=== PATIENT | male | born 1950 | race Caucasian/White ===

== ENCOUNTER 2016-06-25 06:14 | Inpatient (IN) ==
--- NOTE | 2016-06-25 06:43 | Anesthesia Evaluation PreOp ---
Date of Encounter: 06/25/16 Time of Encounter: 06:40 - Past History Planned Operation: kacey fundoplication Cardiac History: HTN Pulmonary History: Denies Any Significant HX BELT FIXER History: CVA (Has no residual deficits) Other Medical History: GERD Anesthesia History: No Prior Anesthetic Complications, Past Anesthesia Alcohol Use: none Drug use: none Medications and Allergies Aspirin 81 mg PO DAILY 04/15/16 [History] Clopidogrel [Plavix] 75 mg PO DAILY 04/15/16 [History] Lisinopril [Zestril] 5 mg PO DAILY 04/15/16 [History] Pantoprazole Sodium [Protonix] 40 mg PO DAILY 04/15/16 [History] Simvastatin [Zocor] 40 mg PO HS 04/15/16 [History] Allergies No Known Allergies Allergy (Verified 04/15/16 08:31) - Meds/Allergy Pre-op Review Medications Reviewed: Yes (blood thinners held) Allergies Reviewed: Yes Beta Blockers on Current Med List: No Anesthesia Results - Labs Laboratory Tests 06/19/16 06/19/16 13:19 13:19 WBC 11.6 H Hgb 13.5 Hct 40.8 Plt Count 231 Sodium 138 Potassium 4.5 Chloride 104 Carbon Dioxide 24 BUN 12 Creatinine 0.84 - Imaging EKG: report reviewed, image reviewed Anesthesia Exam Selected Entries 06/25/16 06:37 Temperature 98.2 F Pulse Rate 92 Respiratory Rate 18 Blood Pressure 125/78 O2 Sat by Pulse Oximetry 99 Weight: 165 lbs NPO (# of Hours): over 8 hours - HEENT Pupil (Motor): Pupils equal Mallampati: I Teeth: Edentulous Oral Opening: Greater than 3 - BELT FIXER BELT FIXER Motor: Normal RUE, Normal LUE, Normal RLE, Normal LLE, Normal Face - Cardiac Rhythm: Regular - Pulmonary Breath Sounds: bilateral Clear Anesthesia Assess/Plan ASA Score: 2 Modified Jeannine Scale for Level of Consciousness: Cooperative, oriented, and tranquil Anesthetic Plan: General Monitoring Plan: Standard Monitors Recovery Plan: PACU (Discussed GA, risks and potential complications. Agreed to proceed.)
[2016-06-25] MEDS ORDERED: CeFAZolin Pre 2,000 MG/100 ML 2,000 MG/100 ML BAG IVPB ONE (06:50)
[2016-06-25] MEDS ORDERED: Lidocaine 1% 20 ML MDV ID ONE (06:50)
[2016-06-25] MEDS ORDERED: Ringers Solution, Lactated 1,000 ML IVC SCH (07:00)
--- NOTE | 2016-06-25 07:04 | History & Physical Report ---
Date of Encounter: 06/25/16 Time of Encounter: 07:00 24 Hour HP Update - Instructions Instructions: If the History and Physical is less than 30 days old and was completed prior to A.M. admission and or procedure and has NOT been updated on calendar day of procedure please complete this update prior to performing procedure. - Update Patient reports changes in Medical Condition: No Changes in assessment/condition: No Changes in Medication: No Preop tests/diagnostics Reviewed: Yes Surgery Remains Indicated: Yes Consent for Planned Operative Procedure(s) Verified: Yes - Pre-Operative Checklist Preoperative Checklist Indicated: Yes Prophylactic Antibiotic Ordered: Yes Home Medications Include Beta Jose: No Is VTE Prophylaxis Indicated?: Yes
[2016-06-25] MEDS ORDERED: *HR* Midazolam HCl 2 MG/2 ML VIAL ONE (07:07)
[2016-06-25] MEDS ORDERED: *HR* Rocuronium Bromide 50 MG/5 ML VIAL ONE (07:07)
[2016-06-25] MEDS ORDERED: Lidocaine -MPF 4% 5 ML AMPUL ONE (07:07)
[2016-06-25] MEDS ORDERED: Neostigmine Methylsulfate 3 MG/3 ML SYRINGE ONE (07:07)
[2016-06-25] MEDS ORDERED: Ondansetron 4 MG/2 ML VIAL ONE (07:07)
[2016-06-25] MEDS ORDERED: *HR* Propofol 200 MG/20 ML VIAL IVP ONE (07:07)
[2016-06-25] MEDS ORDERED: *HR* Succinylcholine 200 MG/10 ML VIAL IVP ONE (07:07)
[2016-06-25] MEDS ORDERED: *HR* FentaNYL (PF) 100 MCG/2 ML VIAL ONE (07:07)
[2016-06-25] MEDS ORDERED: Dexamethasone 4 MG/ML VIAL ONE ×2 (07:07→09:11)
[2016-06-25] MEDS ORDERED: Lidocaine -MPF 2% 2 ML VIAL ONE (07:08)
[2016-06-25] MEDS ORDERED: CefOXitin 1,000 MG VIAL ONE (07:17)
--- NOTE | 2016-06-25 08:53 | Event Note ---
Date of Encounter: 06/25/16 Time of Encounter: 08:45 The patient was taken to the operating room at about 7:50 a.m. The patient was identified and preparations were made for general anesthetic. After intubation on the first breath the patient had a significant reflux and aspiration event. There was an air leak with the balloon on the endotracheal tube and this resulted in high-volume aspiration into the trachea. This was immediately recognized. The endotracheal tube was suctioned of particulate matter. Additional anesthesia staff responded and work with ventilation and apparent bronchospasm. The patient had persistent hypoxia with oxygen saturation in the high 70s and low 80s with 100% FiO2 and peak airway pressures in the low 30s. The patient was treated with steroid. The patient had already received preoperative antibiotic. An oral gastric tube placed earlier in the event aspirated almost 2 L of gastric contents obviously from the gastric volvulus which brought the patient to the operating room. After the patient was stabilized with oxygen levels in the low 90s. The endotracheal tube was changed over to a large #9 tube to allow for bronchoscopy and irrigation if needed. The patient is transferred to the intensive care unit for further therapy.
[2016-06-25] MEDS ORDERED: 0.9 % Sodium Chloride 1,000 ML IVC SCH (09:21)
[2016-06-25] MEDS ORDERED: Naloxone 0.4 MG/ML INJ IVP PRN (09:31)
[2016-06-25 10:51] LABS: ABG Base Excess -4.5 mEq/L (-2.0 to 3.0); ABG HCO3 27.3 mEQ/L (21-27); ABG Oxygen Saturation 98 % (95-98); ABG PO2 131 mmHg (85-104); ABG TCO2 29.9 mEq/L (20-26)
[2016-06-25 10:52] LABS: ABG PCO2 86 mmHg (35-45); Blood Gas FiO2 100 %; Blood Gas PEEP 10 cm H2O; Blood Gas Respiration Rate 12; Blood Gas VT 360 cc
[2016-06-25 10:53] LABS: ABG PH 7.11 pH Units (7.32-7.45)
[2016-06-25] MEDS ORDERED: Ipratropium/Albuterol Neb 3 ML IH PRN (11:37)
[2016-06-25] MEDS ORDERED: Dexmedetomidine HCl 400 MCG/100 ML MLS IVC SCH (11:45)
--- NOTE | 2016-06-25 12:00 | Pulmonology Consult Note ---
Date of Encounter: 06/25/16 Time of Encounter: 11:44 Assessment and Plan (1) Aspiration into airway Current Visit: Yes Status: Acute Witnessed aspiration this am 0700(06/25/2016) upon induction of anesthesia as patient was to going to undergo Hang fundoplication for a paraesophageal hernia. Upon admission to the ICU patient was intubated and sedated, which we will continue. He has an NG tube in place as well as a tatum catheter. Shortly after admission the patients oxygenation declined with O2 sats dropped to 70%. A CXR revealed left lower lobe lung volume loss 2/2 atelectasis with associated cardiac migration to the left side. This was likely causing his poor oxygenation from shunt physiology. Bedside bronchospocy was urgently performed and copious amounts of secretions and debris was suctioned. Oxygenation improved with O2 saturations in the 90 s. BAL was performed and sent for gram stain and culture. Reevaluation: 06/25/16, 1600: CVC was placed without complication d/t hypotension. Patient became normotensive with 1.5L NS bolus. Pt. oxygenation improved significantly. Ventilator support was discontinued and he successfully had a CPAP trial. He was then extubated without complication with oxygen saturations >90%. Will wait for gram stain results. If positive will start antibiotics. Serial chest radiographic studies Goal MAP>60, currently 85 Duonebs Qualifiers: Encounter type: initial encounter Qualified Code(s): T17.908A - Unspecified foreign body in respiratory tract, part unspecified causing other injury, initial encounter (2) Respiratory acidosis Current Visit: Yes Status: Acute ABG s/p aspiration and subsequent bronchoscopy: 7.11/86/27.3 Ventilator minute rate increased to blow off CO2 will recheck ABG in 1.5 hours. Revaluation: Repeat ABG 7.33/46/25.3. extubated. Will reevaluate in am (3) HTN (hypertension) Current Visit: No Status: Chronic Hypertensive 220/120 on admission to ICU will hold home meds Qualifiers: Hypertension type: unspecified secondary hypertension Qualified Code(s): I15.9 - Secondary hypertension, unspecified; I15 - Secondary hypertension (4) Hx TIA/stroke w/o resid Current Visit: No Status: Chronic On Plavix/Asa at home. Will hold for now. Heparin subq 5000 TID (5) DVT prophylaxis Current Visit: Yes Status: Acute Heparin subq 5000 TID History of Present Illness Consult date: 06/25/16 Requesting physician: Jed Calixto Reason for consult: other (Aspiration in OR) Chief complaint: Aspiration History of present illness: Mr. Richter is a 65 M who was scheduled to have a Hang fundoplication this morning to repair his paraesophageal hernia. He has a hx significant for HTN, TIA (2011), PFO, HLD, Colon resection, 80+pack year smoking history, 40 year alcohol abuse history. This morning immediately following anesthesia induction the patient vomited and aspirated copious amounts. He had persistent hypoxia with O2 saturations in the 70-80's with 100% FiO2. He was given a steroid. He had already received preoperative antibiotic. He was immediately transferred to the ICU and the surgery was aborted. Past Med Surg Social Fam HX - Past Medical History Medical history: CVA, GERD Psychiatric history: no psych history - Past Surgical History Surgical History: orthopedic, other, other - Social History Smoking Status: Never smoker Smokeless Tobacco Status: No Alcohol use: none Drug use: none Medications and Allergies Aspirin 81 mg PO DAILY 04/15/16 [History] Clopidogrel [Plavix] 75 mg PO DAILY 04/15/16 [History] Lisinopril [Zestril] 5 mg PO DAILY 04/15/16 [History] Pantoprazole Sodium [Protonix] 40 mg PO BID 04/15/16 [History] Simvastatin [Zocor] 40 mg PO HS 04/15/16 [History] Cyanocobalamin (Vitamin B-12) [Vitamin B-12] 500 mcg PO DAILY 06/25/16 [History] Multivitamin [One Daily Essential] 1 each PO DAILY 06/25/16 [History] Allergies No Known Allergies Allergy (Verified 06/25/16 07:23) ROS unobtainable: due to endotracheal tube All Systems: A 10-system review of systems was performed and is negative for pertinent findings except as documented above in the HPI. Physical Examination General appearance: other (intubated and sedated) Eyes: nonicteric ENT: oropharynx dry Neck: supple Effort: very labored, other Auscultation: bilateral: rhonchi Cardiovascular: regular rate and rhythm Gastrointestinal: hypoactive bowel sounds Extremities: edema unable to assess due to mental status Results - Laboratory Findings CBC and BMP: 06/25/16 12:09 06/25/16 12:09 ABG ABG pH 7.11 pH Units (7.32-7.45) L* 06/25/16 10:35 ABG pCO2 86 mmHg (35-45) H* 06/25/16 10:35 ABG pO2 131 mmHg (85-104) H 06/25/16 10:35 ABG O2 Saturation 98 % (95-98) 06/25/16 10:35 Abnormal lab findings: Abnormal lab results ABG pH 7.11 pH Units (7.32-7.45) L* 06/25/16 10:35 ABG pCO2 86 mmHg (35-45) H* 06/25/16 10:35 ABG pO2 131 mmHg (85-104) H 06/25/16 10:35 ABG HCO3 27.3 mEQ/L (21-27) H 06/25/16 10:35 ABG Total CO2 29.9 mEq/L (20-26) H 06/25/16 10:35 ABG Base Excess -4.5 mEq/L (-2.0 to 3.0) L 06/25/16 10:35 - Clinical Findings Intake & Output: Intake & Output 06/24/16 06/25/16 06/25/16 23:59 07:59 15:59 Intake Total 800 / 800 Balance 800 / 800 Weight 79.379 kg Consult Discharge Plan - Plan Referrals: Royal Ceballos MD [Primary Care Provider] -
[2016-06-25 12:17] LABS: Basophils % 0.1 %; Eosinophils % 0.1 %; Hematocrit 43.7 % (37.5-50.1); Hemoglobin 14.1 g/dL (12.9-16.9); Immature Granulocytes % 0.3 % (0-4); Lymphocytes # 0.3 K/mcL (0.6-4.6); Lymphocytes % 2.2 %; Mean Corpuscular HGB Conc 32.3 g/dL (31.6-35.5); Mean Corpuscular Hemoglobin 28.8 pg (28.0-33.3); Mean Corpuscular Volume 89.4 fL (83.0-100.0); Mean Platelet Volume 9.3 fL (9.4-12.4); Monocytes # 0.4 K/mcL (0.0-1.3); Monocytes % 2.4 %; Neutrophils # 14.2 K/mcL (1.6-8.9); Platelet Count 225 K/mcL (140-400); Red Blood Count 4.89 M/mcL (4.19-5.50); Segmented Neutrophils % 94.9 %
--- NOTE | 2016-06-25 12:18 | Event Note ---
Date of Encounter: 06/25/16 Time of Encounter: 12:00 Patient examined, chart and all data reviewed as well as recent imaging studies. I reviewed the case in detail with Dr. Calixto. Apparently, patient experienced high-volume aspiration during induction anesthesia (the patient was to undergo abdominal surgery for intrathoracic hiatal hernia). Following aspiration event, the patient was notably profoundly hypoxemic and required high level ventilatory support. Given the sequence of events and ventilatory requirements, the patient was transferred to the intensive care unit for further management. I reviewed the medical history detail and of note, the patient is in fact a current smoker of at least [id number] (per daughter, not listed in chart) and is an alcoholic (sober for approximately 4 years). Medical histories include hypertension and hypercholesterolemia, prior stroke carotid arterial disease and atrial septal defect (reportedly with right to left shunt). Examination revealed a male sedated and orally intubated with acceptable hemodynamics and oxygen saturation via pulse oximetry approximating 93%, FiO2 of 100% 10 of PEEP, orally intubated with a #9 endotracheal tube. Suctioning endotracheal tube did not reveal significant secretion. Auscultation of the chest was notable for reduced breath sounds at the left base relative to the other lung zones. Rhonchi were present as well. Cardiac exam notable for regular rate systolic murmur was not appreciated P2 component was normal. Abdominal exam was soft and scaphoid configuration, bowel sounds were present. Extremities were warm to touch, pulses intact. Sedation precluded a detailed neurologic exam, spontaneous extremity movement, cough and occular exam all intact. Focused Ultrasound evaluation revealed preserved LV function normal size of right structures normal IVC size with respiratory variation, lung sliding throughout all right lung zones, reduced lung movement within the left hemithorax however preserved lung pulse and air bronchogram sign suggestive of atelectasis and/or infiltrate (left base). A subsequent desaturation event was noted by nursing staff and in light of the findings noted from focused chest ultrasound, bronchoscopy was performed at the bedside. Significant mucoid secretions were noted obstructing the left main stem bronchus and following removal of the secretions from the left mainstem bronchus, the left upper lobe bronchi appear relatively normal. Retained secretions and foreign matter noted within all the bronchopulmonary segments within the left lower lobe in conjunction with mucosal edema and airway inflammatory changes throughout all bronchopulmonary segments within the left lower lobe. Specimens were obtained for microbiological analysis. The patient will be maintained on full ventilatory support given acute respiratory failure with hypoxia. Aside from atelectasis due to gastric aspiration and perhaps undiagnosed COPD as etiologies of acute respiratory failure, the patient l develop lung injury/ARDS. Mechanical ventilation will be provided with lung protective strategy. Inhaled bronchodilators will be provided to enhance bronchopulmonary hygiene. The patient will receive DVT and ulcer prophylaxis. Based the results of Gram stain from the respiratory specimen rendered at the time of bronchoscopy, antibiotics may be initiated ( Unasyn).
[2016-06-25 12:22] LABS: INR 1.2; Prothrombin Time 12.9 Seconds (9.4-12.1)
--- NOTE | 2016-06-25 12:22 | Procedure Note ---
Date of procedure: 06/25/16 Pre-op diagnosis: atelectasis left lower lobe Post-op diagnosis: same Procedure: A disposable bronchoscope was utilized for this procedure. This procedure was performed emergently. Through the pre-existing oral endotracheal tube, bronchoscope passed without difficulty. Inspection of the right main stem bronchus and all bronchopulmonary segments within the right chest entirely unremarkable. The left mainstem bronchus was obstructed by mucus. Following removal of secretions from the left mainstem bronchus, the left upper lobe bronchopulmonary segments were unremarkable. Thick inspissated secretions as well as foreign material noted within all bronchopulmonary segments the left lower lobe. Furthermore, severe airway inflammatory changes were also noted within all bronchopulmonary segments the left lower lobe. Specimen was obtained for microbiological analysis. Vigorous washing technique was utilized to remove all foreign material and secretions from the left lower lobe. The patient tolerated the procedure well no untoward events were noted. Anesthesia: none Surgeon: Fabian Hines Estimated blood loss (cc): 0 IV fluids (cc): 0 Urine output (cc): 20 Pathology: none sent Condition: critical Disposition: ICU (Emergent bronchoscopy performed given significant desaturation and clinical findings suggestive of left lower lobe atelectasis. Specimen obtained for microbiological analysis. He procedure was tolerated well and of note, oxygen saturation values robin promptly with removal of left lower lobe secretions.)
[2016-06-25 12:31] LABS: Alanine Aminotransferase 7 Units/L (0-55); Albumin 3.3 g/dL (3.5-5.0); Alkaline Phosphatase 73 Units/L (38-126); Aspartate Amino Transferase 14 Units/L (5-34); BUN/Creatinine Ratio 14 (6-26); Bilirubin,Total 0.3 mg/dL (0.2-1.2); Blood Urea Nitrogen 12 mg/dL (8-26); Calcium 9.1 mg/dL (8.6-10.8); Carbon Dioxide 26 mEq/L (19-29); Chloride 104 mEq/L (98-109); Globulin 3.2 g/dL (2.4-3.5); Glucose 177 mg/dL (70-99); Osmolality,Calculated 290 (280-300); Potassium 4.3 mEq/L (3.5-4.5); Sodium 138 mEq/L (136-145); Total Protein 6.5 g/dL (6.0-8.3); eGFR For African Americans > 60 (> 60); eGFR For Non-African Americans > 60 (> 60)
[2016-06-25] MEDS ORDERED: 0.9 % Sodium Chloride 500 ML IVC ONE (12:58)
[2016-06-25] MEDS ORDERED: 0.9 % Sodium Chloride 1,000 ML ONE ×2 (13:00→13:40)
[2016-06-25] MEDS ORDERED: D5% in Water 1,000 ML IV PRN (13:27)
[2016-06-25] MEDS ORDERED: Dextrose Gel 15 GM PO PRN ×2 (13:27)
[2016-06-25] MEDS ORDERED: *HR* Dextrose 50 % in Water (Syg) 50 ML SYRINGE IVP PRN (13:27)
[2016-06-25 13:29] LABS: ABG Base Excess -1.9 mEq/L (-2.0 to 3.0); ABG HCO3 24.3 mEQ/L (21-27); ABG Oxygen Saturation 100 % (95-98); ABG PCO2 46 mmHg (35-45); ABG PH 7.33 pH Units (7.32-7.45); ABG PO2 248 mmHg (85-104); ABG TCO2 25.7 mEq/L (20-26)
[2016-06-25 13:30] LABS: Blood Gas FiO2 80 %
[2016-06-25] MEDS ORDERED: 0.9 % Sodium Chloride 500 ML ONE (13:54)
[2016-06-25] MEDS ORDERED: Norepinephrine 4 MG in D5% in Water 250 ML IVC SCH (14:00)
[2016-06-25] MEDS: Ipratropium/Albuterol Neb 3 ML IH SCH ×2 (15:14→22:21)
--- NOTE | 2016-06-25 15:21 | Procedure Note ---
Date of procedure: 06/25/16 Pre-op diagnosis: Respiratory failure due to aspiration Post-op diagnosis: same Procedure: Central Venous Catheter Placement Date: 06/25/16 Time: 1400 Indication: Hemodynamic monitoring/Intravenous access Resident: Brian Smith Attending: Dr. Hines A time-out was completed verifying correct patient, procedure, site, positioning , and special equipment if applicable. The patient was placed in a dependent position appropriate for central line placement based on the vein to be cannulated. The patients right neck was prepped and draped in sterile fashion. 1 % Lidocaine was used to anesthetize the surrounding skin area. A triple lumen catheter was introduced into the the internal jugular using the Seldinger technique and under ultrasound guidance. A 16 cm 7 maori catheter was threaded smoothly over the guide wire and appropriate blood return was obtained. Each lumen of the catheter was evacuated of air and flushed with sterile saline. The catheter was then sutured in place to the skin and a sterile dressing applied. Perfusion to the extremity distal to the point of catheter insertion was checked and found to be adequate. Procedure was performed by Dr. Oscar Burden, assisted by Dr. Tim España, and was overseen by attending Dr. Hines. Estimated Blood Loss: 10ml The patient tolerated the procedure well and there were no complications. Anesthesia: IV sedation Surgeon: Oscar Burden Cafeteria Table Attendant: Tim España Estimated blood loss (cc): 10 IV fluids (cc): 0 Urine output (cc): 0 Pathology: none sent Condition: stable Disposition: ICU
--- NOTE | 2016-06-25 16:22 | Event Note ---
Date of Encounter: 06/25/16 Time of Encounter: 14:00 Central line placement. Time of procedure was at 1400 I called and spoke with the patient's daughter Trina Richter, patient's daughter who is currently in the state of [place]. I discussed the reasoning for placing a central line, risks and benefits. She provided verbal consent to place a central line on her father Real Richter. She also requested that any decisions that need to be made in her absence or until the patient's sister arrives would be made by a family friend/in store marketing representative Madhavi Coreas.
[2016-06-25] MEDS: *HR* Heparin 5,000 UNIT/ML VIAL SQ SCH (16:45)
[2016-06-25] MEDS: Insulin LISPRO 300 UNITS/3 ML VIAL SQ SCH (18:22)
[2016-06-26] MEDS: *HR* Heparin 5,000 UNIT/ML VIAL SQ SCH ×4 (00:50→23:05)
[2016-06-26] MEDS: Insulin LISPRO 300 UNITS/3 ML VIAL SQ SCH ×2 (00:51→05:19)
[2016-06-26] MEDS: Ipratropium/Albuterol Neb 3 ML IH SCH ×4 (04:43→23:09)
[2016-06-26 04:50] LABS: Basophils % 0.1 %; Hematocrit 33.3 % (37.5-50.1); Immature Granulocytes % 0.3 % (0-4); Lymphocytes % 6.6 %; Mean Corpuscular HGB Conc 33.3 g/dL (31.6-35.5); Mean Corpuscular Hemoglobin 29.1 pg (28.0-33.3); Mean Corpuscular Volume 87.4 fL (83.0-100.0); Monocytes % 6.5 %; Neutrophils # 13.4 K/mcL (1.6-8.9); Platelet Count 178 K/mcL (140-400); Red Blood Count 3.81 M/mcL (4.19-5.50); Red Cell Distribution Width 12.1 % (11.5-14.5); Segmented Neutrophils % 86.5 %
[2016-06-26 04:54] LABS: INR 1.3; Prothrombin Time 14.6 Seconds (9.4-12.1)
[2016-06-26 04:59] LABS: Hemoglobin 11.1 g/dL (12.9-16.9)
[2016-06-26 05:10] LABS: Alanine Aminotransferase 6 Units/L (0-55); Albumin 2.7 g/dL (3.5-5.0); Alkaline Phosphatase 55 Units/L (38-126); Aspartate Amino Transferase 14 Units/L (5-34); BUN/Creatinine Ratio 17 (6-26); Bilirubin,Total 0.6 mg/dL (0.2-1.2); Blood Urea Nitrogen 12 mg/dL (8-26); Calcium 8.8 mg/dL (8.6-10.8); Carbon Dioxide 23 mEq/L (19-29); Chloride 106 mEq/L (98-109); Globulin 2.8 g/dL (2.4-3.5); Glucose 107 mg/dL (70-99); Osmolality,Calculated 284 (280-300); Potassium 3.9 mEq/L (3.5-4.5); Sodium 137 mEq/L (136-145); Total Protein 5.5 g/dL (6.0-8.3); eGFR For African Americans > 60 (> 60); eGFR For Non-African Americans > 60 (> 60)
--- NOTE | 2016-06-26 07:44 | Pulmonology Progress Note ---
Date of Encounter: 06/26/16 Time of Encounter: 07:41 Assessment and Plan (1) Aspiration into airway Current Visit: Yes Status: Acute Chest x-ray this morning shows significant improvement of aeration of lungs compared to yesterday 06/25/2016. Patient is oxygenating well saturations in the mid to upper 90s on 2 L nasal cannula. He appears to have no residual effects from his aspiration event yesterday. Bronchial washings were sent for Gram stain and culture. Preliminary results Gram stain showed few white blood cells, few gram-negative rods, and bacteria. We will hold off on antibiotics at this time and await for culture results. Patient's vital signs are stable, and transfers will be placed to move him out of the ICU onto the floor. Qualifiers: Encounter type: subsequent encounter Qualified Code(s): T17.908D - Unspecified foreign body in respiratory tract, part unspecified causing other injury, subsequent encounter (2) Hypotension Current Visit: Yes Status: Resolved On 06/25/2016 patient became hypotensive with the low blood pressure of 50/40. This was most likely secondary to the aspiration, sedation with Precedex and propofol. Central venous catheter was placed, 1.5 L fluid bolus was given, and sedation was discontinued. After which he became normotensive yesterday as and has remained normotensive since. Qualifiers: Hypotension type: unspecified hypotension type Qualified Code(s): I95.9 - Hypotension, unspecified (3) Respiratory acidosis Current Visit: Yes Status: Resolved Respiratory acidosis has resulted this time. Most recent ABG ABG 7.33/46/25.3 Will continue to monitor (4) HTN (hypertension) Current Visit: No Status: Chronic Hypertensive 220/120 on admission to ICU. Blood pressure 115/59 this morning. will hold home meds Qualifiers: Hypertension type: unspecified secondary hypertension Qualified Code(s): I15.9 - Secondary hypertension, unspecified; I15 - Secondary hypertension (5) Hx TIA/stroke w/o resid Current Visit: No Status: Chronic On Plavix/Asa at home. Will hold for now. Heparin subq 5000 TID (6) DVT prophylaxis Current Visit: Yes Status: Acute Heparin subq 5000 TID Subjective Principal diagnosis: Acute respiratory failure from aspiration Interval history: Patient seen and examined. Sitting up comfortably in bed this morning no acute distress and patient is stable this morning, he is conversational. Denies any chest pain, shortness of breath, abdominal pain, nausea. He is vital signs are stable this morning. Blood pressure has remained normotensive since central line placement and fluid bolus 06/25/2016. Transformers replace today to move patient out of the ICU onto the floor. Objective PUL Vital signs: Last Vital Signs Temp 98.9 F 06/26/16 04:20 Pulse 95 06/26/16 06:00 Resp 18 06/26/16 06:00 BP 99/54 06/26/16 06:00 Pulse Ox 92 L 06/26/16 06:00 General appearance: no acute distress Eyes: nonicteric ENT: oropharynx moist Neck: supple Effort: normal Auscultation: left: rales, right: clear Cardiovascular: regular rate and rhythm Gastrointestinal: normoactive bowel sounds Integumentary: normal Extremities: no cyanosis, no edema, no clubbing, pink and warm, pulses normal Musculoskeletal: no deformities normal mental status, non-focal exam mood appropriate, affect normal Results - Laboratory Findings CBC and BMP: 06/26/16 04:30 06/26/16 04:30 ABG ABG pH 7.33 pH Units (7.32-7.45) D 06/25/16 13:20 ABG pCO2 46 mmHg (35-45) H D 06/25/16 13:20 ABG pO2 248 mmHg (85-104) H 06/25/16 13:20 ABG O2 Saturation 100 % (95-98) H 06/25/16 13:20 PT/INR, D-dimer PT 14.6 Seconds (9.4-12.1) H 06/26/16 04:30 Abnormal lab findings: Abnormal lab results WBC 15.5 K/mcL (4.3-11.1) H 06/26/16 04:30 RBC 3.81 M/mcL (4.19-5.50) L 06/26/16 04:30 Hgb 11.1 g/dL (12.9-16.9) L D 06/26/16 04:30 Hct 33.3 % (37.5-50.1) L 06/26/16 04:30 Neutrophils # 13.4 K/mcL (1.6-8.9) H 06/26/16 04:30 PT 14.6 Seconds (9.4-12.1) H 06/26/16 04:30 ABG pCO2 46 mmHg (35-45) H D 06/25/16 13:20 ABG pO2 248 mmHg (85-104) H 06/25/16 13:20 ABG O2 Saturation 100 % (95-98) H 06/25/16 13:20 Creatinine 0.69 mg/dL (0.72-1.25) L 06/26/16 04:30 Glucose 107 mg/dL (70-99) H 06/26/16 04:30 POC Glucose 128 (58-89) H 06/26/16 00:01 Serum Total Protein 5.5 g/dL (6.0-8.3) L 06/26/16 04:30 Albumin 2.7 g/dL (3.5-5.0) L 06/26/16 04:30 Albumin/Globulin Ratio 1.0 (1.1-2.2) L 06/26/16 04:30 - Microbiology Findings Microbiology Findings: Microbiology, Last 48 Hours 06/25/16 09:50 Gram Stain - Preliminary Bronchial Washings - Clinical Findings Intake & Output: Intake & Output 06/25/16 06/25/16 06/26/16 15:59 23:59 07:59 Intake Total 800 / 800 0 / 0 Output Total 350 / 350 250 / 250 550 / 550 Balance 450 / 450 -250 / -250 -550 / -550 Weight 76.6 kg - VTE Documentation of Mechanical Device: Intermittent pneumatic compression device Consult Discharge Plan - Plan Referrals: Royal Ceballos MD [Primary Care Provider] -
--- NOTE | 2016-06-26 09:24 | General Surgery Progress Note ---
Date of Encounter: 06/26/16 Time of Encounter: 07:00 - Assessment and Plan (1) Aspiration into airway Current Visit: Yes Status: Acute The aspiration and the airway resulted in aspiration pneumonitis. The patient is being treated with steroid and antibiotic. I recommended waiting at least 2 weeks to initiate a general anesthetic. The patient understands this. We will continue aggressive treatment of his aspiration pneumonitis. Qualifiers: Encounter type: subsequent encounter Qualified Code(s): T17.908D - Unspecified foreign body in respiratory tract, part unspecified causing other injury, subsequent encounter Subjective Narrative: The patient is awake and alert. I was able to discuss with him the clinical events that occurred yesterday during intubation in the operating room and then his subsequent care in the intensive care unit. Yesterday his left lung and left lower lobe had considerable opacity. Today on chest x-ray the lung is much more clear. I personally reviewed all of his chest x-rays from yesterday and today his white blood cell count is 15,500 today slightly elevated. On physical examination he continues to have some wheezing. His oxygen saturation on 3 L nasal cannula is 91%. The patient is awake and alert and hungry. I have approved him for clear liquids. We will long discussion today about when to proceed with surgery. I understand that he is at aspiration risk because of his intrathoracic stomach. He is at risk for volvulus. In currently stomach is obstructing. Despite this, I think that we should wait 2 weeks to allow his lungs to recover before giving him a general anesthetic. I have recommended that he be placed on a clear liquid diet and advanced to full liquids. We will reschedule his surgery after he stabilizes. At this point we need to continue aggressive therapy for aspiration pneumonia. Objective Vital Signs - Last 8 Hours Temp Pulse Resp BP Pulse Ox 06/26/16 08:00 81 25 115/59 93 L 06/26/16 07:52 95 06/26/16 07:00 98.6 F 95 16 116/58 93 L 06/26/16 06:00 95 18 99/54 92 L 06/26/16 05:00 86 23 93/44 92 L 06/26/16 04:44 23 106/58 95 06/26/16 04:20 98.9 F 72 23 106/58 93 L 06/26/16 03:02 75 25 101/58 91 L 06/26/16 02:00 80 24 96/55 91 L Intake and Output 06/25/16 06/26/16 06/26/16 23:59 07:59 15:59 Intake Total 0 / 0 Output Total 250 / 250 800 / 800 Balance -250 / -250 -800 / -800 Intake: Oral 0 / 0 Output: Catheter 250 / 250 800 / 800 Other: Weight 76.6 kg Blood Glucose* 115 128 Patient Weight 06/26/16 23:59 Weight 76.6 kg - General physical appearance well developed, well nourished, no pain - Neck Neck exam: no masses, trachea midline, no lymphadectomy - Respiratory normal respiratory effort wheezing: bilateral - Cardiovascular Cardiovascular exam: Present: RRR, no murmurs/rubs/gallops - Abdomen Abdomen: Present: bowel sounds present, soft, non tender - Neurologic normal coordination, normal sensation - Psychiatric oriented to time, oriented to person, oriented to place, speech is normal, memory intact - Labs 06/26/16 04:30 06/26/16 04:30 Diabetes panel 06/25/16 06/26/16 Range/Units 12:09 04:30 Sodium 138 137 (136-145) mEq/L Potassium 4.3 3.9 (3.5-4.5) mEq/L Chloride 104 106 (98-109) mEq/L Carbon Dioxide 26 23 (19-29) mEq/L BUN 12 12 (8-26) mg/dL Creatinine 0.83 0.69 L (0.72-1.25) mg/dL Glucose 177 H 107 H (70-99) mg/dL Calcium 9.1 8.8 (8.6-10.8) mg/dL AST 14 14 (5-34) Units/L ALT 7 6 (0-55) Units/L Alkaline Phosphatase 73 55 (38-126) Units/L Albumin 3.3 L 2.7 L (3.5-5.0) g/dL Calcium panel 06/25/16 06/26/16 Range/Units 12:09 04:30 Calcium 9.1 8.8 (8.6-10.8) mg/dL Albumin 3.3 L 2.7 L (3.5-5.0) g/dL Pituitary panel 06/25/16 06/26/16 Range/Units 12:09 04:30 Sodium 138 137 (136-145) mEq/L Potassium 4.3 3.9 (3.5-4.5) mEq/L Chloride 104 106 (98-109) mEq/L Carbon Dioxide 26 23 (19-29) mEq/L BUN 12 12 (8-26) mg/dL Creatinine 0.83 0.69 L (0.72-1.25) mg/dL Glucose 177 H 107 H (70-99) mg/dL Calcium 9.1 8.8 (8.6-10.8) mg/dL Adrenal panel 06/25/16 06/26/16 Range/Units 12:09 04:30 Sodium 138 137 (136-145) mEq/L Potassium 4.3 3.9 (3.5-4.5) mEq/L Chloride 104 106 (98-109) mEq/L Carbon Dioxide 26 23 (19-29) mEq/L BUN 12 12 (8-26) mg/dL Creatinine 0.83 0.69 L (0.72-1.25) mg/dL Glucose 177 H 107 H (70-99) mg/dL Calcium 9.1 8.8 (8.6-10.8) mg/dL Total Bilirubin 0.3 0.6 (0.2-1.2) mg/dL AST 14 14 (5-34) Units/L ALT 7 6 (0-55) Units/L Alkaline Phosphatase 73 55 (38-126) Units/L Albumin 3.3 L 2.7 L (3.5-5.0) g/dL - Imaging Chest x-ray: image reviewed (I personally reviewed the chest x-ray. This is much improved from yesterday but still has opacities on both sides.) - VTE Documentation of Mechanical Device: Intermittent pneumatic compression device Consult Discharge Plan - Plan Referrals: Royal Ceballos MD [Primary Care Provider] -
[2016-06-26] MEDS ORDERED: Pantoprazole 40 MG VIAL IVPB SCH (09:34)
[2016-06-26] MEDS ORDERED: Aspirin 81 MG TAB.CHEW PO SCH (10:45)
--- NOTE | 2016-06-26 12:58 | Event Note ---
Date of Encounter: 06/26/16 Time of Encounter: 07:35 Patient examined, chart and all data reviewed as well as chest imaging study. The patient was successfully extubated during the latter afternoon yesterday. Patient's current respiratory status hemodynamic status and overall clinical status have substantially improved overnight. Follow-up chest imaging study of the chest reveals infiltrate and perhaps mild volume loss within the left chest, substantially improved in comparison to films from yesterday. The [facility] [place] Gram stain essentially was unremarkable save for scant presence of organism hence antibiotics have not been instituted at this time based upon this finding as well as the clinical evaluation. Examination reveals a male appears his stated age she is awake and alert no distress I reviewed vitals. Chest auscultation is notable for minimal rhonchi left greater than right. Cardiac exam reveals the presence of a regular rate. The abdominal exam was unremarkable. His extremities were warm pulses were intact and neurologically he is fully intact. The patient a transfer out of the intensive care unit later today. He will are require monitoring for at least the next 24 hours within the hospital setting. The patient's diet will be advanced and home medications will be reinstituted. The patient will require a follow-up reevaluation with Dr. Calixto regarding rescheduling surgery for his large hiatal hernia. Given the finding of imaging studies, aside from a large intrathoracic hiatal hernia, and given gross distention of the esophagus from personal review of imaging studies, I wonder if the patient also has achalasia or some other motility disorder in addition to the large intrathoracic hiatal hernia. Patient's management was reviewed during multidisciplinary critical care rounds earlier this morning.
[2016-06-26] MEDS ORDERED: *HR* Dextrose 50 % in Water (Syg) 50 ML SYRINGE IVP PRN (13:52)
[2016-06-26] MEDS ORDERED: Dextrose Gel 15 GM PO PRN ×2 (13:52)
[2016-06-26] MEDS ORDERED: D5% in Water 1,000 ML IV PRN (13:52)
[2016-06-26] MEDS ORDERED: Ipratropium/Albuterol Neb 3 ML IH PRN (13:52)
[2016-06-26] MEDS ORDERED: Naloxone 0.4 MG/ML INJ IVP PRN (13:52)
[2016-06-26] MEDS ORDERED: Insulin LISPRO 300 UNITS/3 ML VIAL SQ SCH (18:00)
[2016-06-27] MEDS: Ipratropium/Albuterol Neb 3 ML IH SCH ×2 (04:06→09:46)
[2016-06-27] MEDS: *HR* Heparin 5,000 UNIT/ML VIAL SQ SCH (06:02)
[2016-06-27 06:42] LABS: Basophils % 0.2 %; Eosinophils # 0.1 K/mcL (0.0-0.6); Eosinophils % 0.5 %; Hematocrit 34.4 % (37.5-50.1); Hemoglobin 11.3 g/dL (12.9-16.9); Immature Granulocytes % 0.5 % (0-4); Lymphocytes # 1.1 K/mcL (0.6-4.6); Lymphocytes % 9.3 %; Mean Corpuscular HGB Conc 32.8 g/dL (31.6-35.5); Mean Corpuscular Hemoglobin 28.3 pg (28.0-33.3); Mean Corpuscular Volume 86.2 fL (83.0-100.0); Mean Platelet Volume 9.8 fL (9.4-12.4); Monocytes # 1.2 K/mcL (0.0-1.3); Monocytes % 10.1 %; Neutrophils # 9.1 K/mcL (1.6-8.9); Platelet Count 170 K/mcL (140-400); Red Blood Count 3.99 M/mcL (4.19-5.50); Red Cell Distribution Width 12.4 % (11.5-14.5); Segmented Neutrophils % 79.4 %
[2016-06-27 06:51] LABS: BUN/Creatinine Ratio 14 (6-26); Blood Urea Nitrogen 9 mg/dL (8-26); Calcium 8.6 mg/dL (8.6-10.8); Carbon Dioxide 23 mEq/L (19-29); Chloride 104 mEq/L (98-109); Glucose 106 mg/dL (70-99); Osmolality,Calculated 281 (280-300); Potassium 3.5 mEq/L (3.5-4.5); Sodium 136 mEq/L (136-145); eGFR For African Americans > 60 (> 60); eGFR For Non-African Americans > 60 (> 60)
[2016-06-27] MEDS ORDERED: Aspirin 81 MG TAB.CHEW PO SCH (09:00)
[2016-06-27] MEDS ORDERED: Pantoprazole 40 MG VIAL IVPB SCH (09:00)
--- NOTE | 2016-06-27 10:47 | General Surgery Progress Note ---
Date of Encounter: 06/27/16 Time of Encounter: 08:00 - Assessment and Plan (1) Aspiration into airway Current Visit: Yes Status: Acute Aspiration pneumonitis. Improving. The patient continues to saturate at 91% on 2L oxygen by nasal cannula. Pulmonology recommended holding antibiotics yesterday and continuing to monitor. WBCs decreased from 15.5 yesterday to 11.4 today. Qualifiers: Encounter type: subsequent encounter Qualified Code(s): T17.908D - Unspecified foreign body in respiratory tract, part unspecified causing other injury, subsequent encounter Subjective Patient reports: no new complaints, feels better, tolerating liquids well, voiding w/o difficulty, flatus, no bowel movement, fever (low grade of 100.3 at 7:50AM) Narrative: No nausea or vomiting. The patient states that he is wanting to go home. Objective Vital Signs - Last 8 Hours Temp Pulse Resp BP Pulse Ox 06/27/16 07:50 100.3 F H 109 17 122/69 91 L 06/27/16 05:30 99.1 F 18 117 110/54 91 L 06/27/16 04:06 17 89 L Intake and Output 06/26/16 06/27/16 06/27/16 23:59 07:59 15:59 Intake Total 520 / 520 840 / 840 Output Total 200 / 200 0 / 0 Balance 320 / 320 840 / 840 Intake: Oral 520 / 520 840 / 840 Output: Urine 0 / 0 Catheter 200 / 200 Other: Meal Dinner Breakfast Percent of Meal Consumed 90% Weight 77.2 kg Patient Weight 06/27/16 23:59 Weight 77.2 kg - General physical appearance well developed, well nourished, no distress - Eyes normal ocular movement - ENT normal mucosa, atraumatic, normocephalic - Neck Neck exam: trachea midline, other (Bandage in place from central line that was removed. ) - Respiratory normal respiratory effort, clear to auscultation - Cardiovascular Cardiovascular exam: Present: RRR - Abdomen Abdomen: Present: bowel sounds present, soft, non tender - Integumentary no rash - Neurologic CN 2-12 grossly intact - Musculoskeletal normal posture - Psychiatric oriented to time, oriented to person, oriented to place, speech is normal, memory intact - Labs 06/27/16 05:42 06/27/16 05:42 Diabetes panel 06/27/16 Range/Units 05:42 Sodium 136 (136-145) mEq/L Potassium 3.5 (3.5-4.5) mEq/L Chloride 104 (98-109) mEq/L Carbon Dioxide 23 (19-29) mEq/L BUN 9 (8-26) mg/dL Creatinine 0.66 L (0.72-1.25) mg/dL Glucose 106 H (70-99) mg/dL Calcium 8.6 (8.6-10.8) mg/dL Calcium panel 06/27/16 Range/Units 05:42 Calcium 8.6 (8.6-10.8) mg/dL Pituitary panel 06/27/16 Range/Units 05:42 Sodium 136 (136-145) mEq/L Potassium 3.5 (3.5-4.5) mEq/L Chloride 104 (98-109) mEq/L Carbon Dioxide 23 (19-29) mEq/L BUN 9 (8-26) mg/dL Creatinine 0.66 L (0.72-1.25) mg/dL Glucose 106 H (70-99) mg/dL Calcium 8.6 (8.6-10.8) mg/dL Adrenal panel 06/27/16 Range/Units 05:42 Sodium 136 (136-145) mEq/L Potassium 3.5 (3.5-4.5) mEq/L Chloride 104 (98-109) mEq/L Carbon Dioxide 23 (19-29) mEq/L BUN 9 (8-26) mg/dL Creatinine 0.66 L (0.72-1.25) mg/dL Glucose 106 H (70-99) mg/dL Calcium 8.6 (8.6-10.8) mg/dL - VTE Documentation of Mechanical Device: Intermittent pneumatic compression device Consult Discharge Plan - Plan Referrals: Royal Ceballos MD [Primary Care Provider] - - Attending Attestation I examined this patient and my medical decision-making was reviewed with the DEEP FRYER ASSEMBLER/PA/Advanced Practice Nurse/Resident Physician. I agree with the documented findings, disposition and treatment plan as described except to the extent set forth below.
[2016-06-27 12:16] VITALS: BP 119/69
--- NOTE | 2016-06-27 13:10 | Discharge Summary ---
Date of Encounter: 06/27/16 Time of Encounter: 12:30 - Discharge Diagnosis (1) Aspiration into airway Priority: Primary Status: Resolved Qualifiers: Encounter type: subsequent encounter Qualified Code(s): T17.908D - Unspecified foreign body in respiratory tract, part unspecified causing other injury, subsequent encounter - Discharge Medications Home Medications: Aspirin 81 mg PO DAILY 04/15/16 [History] Clopidogrel [Plavix] 75 mg PO DAILY 04/15/16 [History] Lisinopril [Zestril] 5 mg PO DAILY 04/15/16 [History] Pantoprazole Sodium [Protonix] 40 mg PO BID 04/15/16 [History] Simvastatin [Zocor] 40 mg PO HS 04/15/16 [History] Cyanocobalamin (Vitamin B-12) [Vitamin B-12] 500 mcg PO DAILY 06/25/16 [History] Multivitamin [One Daily Essential] 1 each PO DAILY 06/25/16 [History] Allergies/Adverse Reactions: Allergies No Known Allergies Allergy (Verified 06/25/16 07:23) General Surgery Exam Initial Vital Signs Temp Pulse Resp BP Pulse Ox 98.2 F 92 18 125/78 99 06/25/16 06:37 06/25/16 06:37 06/25/16 06:37 06/25/16 06:37 06/25/16 06:37 - General physical appearance well developed, well nourished, no distress - Eyes normal ocular movement - ENT normal nares, atraumatic, normocephalic - Neck trachea midline - Respiratory normal respiratory effort, clear to auscultation - Cardiovascular Cardiovascular exam: Present: RRR, tachycardia - Abdomen Abdomen general surgery: Present: bowel sounds present, soft, non tender - Integumentary Integumentary general surgery: Present: warm and dry - Neurologic Present: CN 2-12 grossly intact - Musculoskeletal Present: normal posture - Psychiatric Psychiatric general surgery: Present: A&Ox3, appropriate, oriented to person, oriented to place, oriented to time, speech is normal, memory intact Date of admission: 06/25/16 09:12 Primary care physician: Royal Ceballos MD Discharging clinician: Maite Kelly Anticipated date of discharge: 06/27/16 - Patient Status Disposition: Home, Self-Care Condition: Good Functional capacity at discharge: independent ambulation Overall status at discharge: patient is progressing back to baseline - Discharge Instructions Follow Up With: Jed Calixto MD [Partnered Physician] - Royal Ceballos MD [Primary Care Provider] - (Plese call your Primary Physician for hospital follow up with in 7 days...) Additional Instructions: On Wednesday call Dr. Calixto's office in order to reschedule for an appointment. - Diet and Activity Activity: increase activity as tolerated Diet: advance to your usual diet - Hospital Course Hospital course: Mr. Richter is a 65 year old male who presented for correction of intrathoracic hiatal hernia on 06/25/16 and underwent aspiration after intubation due to a leak in the balloon of the endotracheal tube. The patient was subsequently transferred to the ICU for acute care and was temporarily place on a vent. Within the same day her returned to having spontaneous breathing on his own with saturation above 90% while on supplemental oxygen via nasal cannula. Pulmonology was consulted and recommended observation instead of treating with steroids and antibiotics. The patient as been progressing well and is wanting to go home today. He was weaned off of oxygen and able to saturate 90% or higher when he underwent a home oxygen evaluation. All questions were answered and the patient is understanding and agreeable to the plan of care. - Time Spent with Patient Total time spent providing and/or coordinating discharge services: Less than 30 minutes Labs on day of discharge: Labs from last 24 hours 06/27/16 06/27/16 05:42 05:42 WBC 11.4 H RBC 3.99 L Hgb 11.3 L Hct 34.4 L MCV 86.2 MCH 28.3 MCHC 32.8 RDW 12.4 Plt Count 170 MPV 9.8 Immature Gran % 0.5 Seg Neutrophils % 79.4 Lymphocytes % 9.3 Monocytes % 10.1 Eosinophils % 0.5 Basophils % 0.2 Neutrophils # 9.1 H Lymphocytes # 1.1 Monocytes # 1.2 Eosinophils # 0.1 Basophils # 0.0 Sodium 136 Potassium 3.5 Chloride 104 Carbon Dioxide 23 BUN 9 Creatinine 0.66 L Est GFR ( Amer) > 60 Est GFR (Non-Af Amer) > 60 BUN/Creatinine Ratio 14 Glucose 106 H Calculated Osmolality 281 Calcium 8.6 Preliminary micro results at discharge 06/25/16 09:50 Bronchial Aspirate Culture - Preliminary Bronchial Washings Normal upper respiratory tract rashard. No apparent pathogens isolated. 06/25/16 09:50 Gram Stain - Preliminary Bronchial Washings - Impressions ITS Impressions Chest X-Ray 06/25/16 09:23 IMPRESSION: 1. NG tube in the left lower lobe bronchus 2. Airspace disease seen in the left lung could represent a combination of pneumonia and volume loss Findings were discussed with Diana Barry RN at 9:48 am on 06/25/2016. D/ / Perfecto Romero MD / Perfecto Romero MD Interpreting Provider: Perfecto Romero MD X-Ray 06/25/16 09:29 IMPRESSION: NG tube tip in the intrathoracic portion of the patient's stomach. The patient has a large hiatal hernia. D/ / 06/25/2016 09:48:33 Dav Huynh MD / adriana Interpreting Provider: Dav Huynh MD Chest X-Ray 06/25/16 14:46 IMPRESSION: 1. Nasogastric tube terminating along the course of the distal esophagus should be advanced approximately 10 cm. 2. Right internal jugular catheter terminating in the distal SVC. 3. Improved aeration of the left lung with diffuse left pneumonia. D/ / Gilbert Oh MD / Gilbert Oh MD Interpreting Provider: Gilbert Oh MD Chest X-Ray 06/26/16 05:00 IMPRESSION: Status post extubation with persistent bilateral apical lung infiltrates left worse than right. D/ / 06/26/2016 07:45:26 Dav Huynh MD / danilo Interpreting Provider: Dav Huynh MD - Attending Attestation I examined this patient and my medical decision-making was reviewed with the EDUCATIONAL RESOURCE COORDINATOR/PA/Advanced Practice Nurse/Resident Physician. I agree with the documented findings, disposition and treatment plan as described except to the extent set forth below.
[2016-06-27] MEDS ORDERED: *HR* Rocuronium Bromide 50 MG/5 ML VIAL IVC ONE (15:11)
== END 2016-06-27 15:12 | disposition home or self-care (01) | DRG 208 ==
LOC: SAMDAY 06:14 → ICNU 09:12 → 2ANU 06-26 19:01
PROVIDERS: ADMIT Surgery; ATTEND Surgery

== ENCOUNTER 2016-07-17 11:52 | Inpatient (IN) ==
[2016-07-17] MEDS ORDERED: Lidocaine 1% 20 ML MDV ID ONE (12:12)
[2016-07-17] MEDS ORDERED: CeFAZolin Pre 2,000 MG/100 ML 2,000 MG/100 ML BAG IVPB ONE (12:12)
--- NOTE | 2016-07-17 12:13 | Anesthesia Evaluation PreOp ---
Date of Encounter: 07/17/16 Time of Encounter: 12:11 - Past History Planned Operation: open Hang Fundoplication Cardiac History: HTN, Hyperlipidemia SNOW SHOVELER History: CVA (no residual effects) Other Medical History: Denies Any Significant HX, GERD Anesthesia History: Past Anesthesia, Problems (aspiration during last intubation requiring ICU admission) Alcohol Use: none Drug use: none Medications and Allergies Aspirin 81 mg PO DAILY 04/15/16 [History] Clopidogrel [Plavix] 75 mg PO DAILY 04/15/16 [History] Lisinopril [Zestril] 5 mg PO DAILY 04/15/16 [History] Pantoprazole Sodium [Protonix] 40 mg PO BID 04/15/16 [History] Simvastatin [Zocor] 40 mg PO HS 04/15/16 [History] Cyanocobalamin (Vitamin B-12) [Vitamin B-12] 500 mcg PO DAILY 06/25/16 [History] Multivitamin [One Daily Essential] 1 each PO DAILY 06/25/16 [History] Allergies No Known Allergies Allergy (Verified 07/17/16 12:14) - Meds/Allergy Pre-op Review Medications Reviewed: Yes Allergies Reviewed: Yes Beta Blockers on Current Med List: No Anesthesia Results - Labs Laboratory Tests 06/26/16 06/27/16 06/27/16 04:30 05:42 05:42 WBC 11.4 H RBC 3.99 L Hct 34.4 L Plt Count 170 INR 1.3 Sodium 136 Potassium 3.5 Chloride 104 Carbon Dioxide 23 BUN 9 Creatinine 0.66 L Glucose 106 H - Imaging EKG: image reviewed (SR) Anesthesia Exam O2 Sat Height 1.78 m Height 1.78 m Weight 72.121 kg Weight 72.121 kg O2 Sat by Pulse Oximetry 97 Vital Signs Temp Pulse Resp BP Pulse Ox 98.0 F 80 18 146/80 97 07/17/16 12:21 07/17/16 12:21 07/17/16 12:21 07/17/16 12:21 07/17/16 12:21 Height: 5'10'' Weight: 152# NPO (# of Hours): > 8 hrs Pain Scale: 0 Pain Scale Used: Numeric (1 - 10) - HEENT Pupil (Motor): Pupils equal, EOMI Mallampati: II Teeth: Edentulous Oral Opening: Greater than 3 - SNOW SHOVELER LOC: Oriented SNOW SHOVELER Motor: Normal RUE, Normal LUE, Normal RLE, Normal LLE, Normal Face SNOW SHOVELER Sensory: Normal: RUE, LUE, RLE, LLE, Face - Cardiac Rhythm: Regular Murmur: None JVD: No Carotid Bruit: No - Pulmonary Breath Sounds: bilateral Clear Respiratory Effort: Symmetrical Anesthesia Assess/Plan ASA Score: 3 Anesthetic Plan: General Autologous Blood: Yes Monitoring Plan: Standard Monitors Recovery Plan: PACU
[2016-07-17] MEDS: Ringers Solution, Lactated 1,000 ML IVC SCH ×2 (12:20→15:00)
[2016-07-17] MEDS ORDERED: Scopolamine Patch 1.5 MG PATCH.TD72 TD ONE (12:38)
--- NOTE | 2016-07-17 12:58 | History & Physical Report ---
Date of Encounter: 07/17/16 Time of Encounter: 12:50 24 Hour HP Update - Instructions Instructions: If the History and Physical is less than 30 days old and was completed prior to A.M. admission and or procedure and has NOT been updated on calendar day of procedure please complete this update prior to performing procedure. - Update Patient reports changes in Medical Condition: No Changes in assessment/condition: No Changes in Medication: No Preop tests/diagnostics Reviewed: Yes Surgery Remains Indicated: Yes Consent for Planned Operative Procedure(s) Verified: Yes - Pre-Operative Checklist Preoperative Checklist Indicated: Yes Prophylactic Antibiotic Ordered: Yes Home Medications Include Beta Jose: No Is VTE Prophylaxis Indicated?: Yes
[2016-07-17] MEDS ORDERED: CefOXitin 1,000 MG VIAL ONE (13:03)
[2016-07-17] MEDS ORDERED: Lidocaine -MPF 2% 2 ML VIAL ONE (13:09)
[2016-07-17] MEDS ORDERED: *HR* FentaNYL (PF) 100 MCG/2 ML VIAL ONE ×2 (13:09→14:21)
[2016-07-17] MEDS ORDERED: Ondansetron 4 MG/2 ML VIAL ONE (13:09)
[2016-07-17] MEDS ORDERED: *HR* Rocuronium Bromide 50 MG/5 ML VIAL ONE (13:09)
[2016-07-17] MEDS ORDERED: Dexamethasone 4 MG/ML VIAL ONE (13:09)
[2016-07-17] MEDS ORDERED: Neostigmine Methylsulfate 3 MG/3 ML SYRINGE ONE (13:09)
[2016-07-17] MEDS ORDERED: *HR* Midazolam HCl 2 MG/2 ML VIAL ONE (13:10)
[2016-07-17] MEDS ORDERED: *HR* Propofol 200 MG/20 ML VIAL IVP ONE (13:10)
[2016-07-17] MEDS ORDERED: Lidocaine -MPF 4% 5 ML AMPUL ONE (13:11)
[2016-07-17] MEDS ORDERED: *HR* Promethazine 25 MG/ML VIAL IVP PRN (15:18)
[2016-07-17] MEDS ORDERED: *HR* HYDROmorphone (PF) 1 MG/ML SYRINGE IVP PRN (15:24)
[2016-07-17] MEDS ORDERED: Ondansetron 4 MG/2 ML VIAL IVP PRN ×2 (15:24→16:59)
[2016-07-17] MEDS ORDERED: *HR* Metoprolol 5 MG/5 ML VIAL IVP PRN ×2 (15:24→16:59)
[2016-07-17] MEDS ORDERED: 0.9 % Sodium Chloride 1,000 ML IVC SCH (15:30)
--- NOTE | 2016-07-17 15:33 | Operative Note ---
Date of procedure: 07/17/16 Pre-op diagnosis: Gastric volvulus and paraesophageal hernia Post-op diagnosis: same Procedure: #1 repair of para-esophageal hiatal hernia #2 Hang fundoplication Anesthesia: KELBY Surgeon: Jed Calixto Estimated blood loss (cc): 50 Condition: stable Disposition: PACU Procedure in Detail: After informed consent patient was taken major operative suite placed in the supine position given adequate general anesthetic. Gilbert taken patient was identified. Vertical midline incisions. The abdomen is entered. Approximate 50% of the stomach is in the chest. A Bookwalter retractor was placed. I mobilized the lateral segment of left lobe liver by dividing the triangular ligament. The lateral segment of the left lobe of liver was retracted inferiorly and to the right. I divided the peritoneal reflection overlying the esophagus. The gastroesophageal junction was fixed and not sliding. The stomach had herniated posteriorly through the hiatus. The hiatus was quite large. The nasogastric tube was placed for the initial dissection to identify the esophagus. I divided the tissue along the lesser omentum and isolated the right yvette of the diaphragm. There is a good deal of tissue projecting from the celiac axis up in the mediastinum. The posterior vagus nerve was identified and grouped with the esophagus. The tissue between the posterior vagus nerve and the aorta was then divided. This allowed me access to the left crura of the diaphragm from the right side. Attention was then turned to the left side. I divided the peritoneum between the stomach and the hernia. This was obviously hernia sac and withdrawn the stomach up in the mediastinum. Once the peritoneum and hernia sac was divided I was able to isolate the short gastrics. The short gastrics on the cardia were then divided with surgical clips and Harmonic dissector. I had full mobilization of the cardia. Once this was done the remainder of the tissue between the celiac axis and the mediastinum was divided not a complete visualization of the left crura of the diaphragm. Then retracted the esophagus and removed the nasogastric tube and placed a 56-Gibraltarian bougie. Once this was done a retracted the esophagus to the left. I then closed the hiatal hernia with 4 stitches of 2-0 Ethibond with pledgets this gave an excellent technical result. The cautery was then brought behind the gastroesophageal junction and I created a 3 stitch Hang fundoplication. This was done around a 56-Gibraltarian bougie and I would consider this a floppy Hang fundoplication. This gave an excellent technical result the bougie was removed I then placed 2 shoulder stitches between the Hang fundoplication and the diaphragm into waste stitches between the Hang fundoplication in the anterior surface of the stomach to further stabilize the wrap and a maintain intra-abdominal orientation. This concluded the procedure blood loss was minimal at 50 mL the liver was returned into the normal position. I then irrigated with copious amounts of antibiotic containing solution midline was closed with looped 0 PDS and skin was closed with interrupted Vicryl and skin clips. He tolerated the procedure well.
[2016-07-17] MEDS: *HR* HYDROmorphone (PF) 1 MG/ML SYRINGE IVP PRN ×5 (15:45→19:44)
--- NOTE | 2016-07-17 16:25 | Anesthesia Evaluation Post Op ---
Date of Encounter: 07/17/16 Time of Encounter: 16:24 - Vital Signs Vital Signs: Vital Signs/O2 Sat, Most Current Temp Pulse Resp BP Pulse Ox 98.2 F 64 16 160/93 95 07/17/16 16:05 07/17/16 16:15 07/17/16 16:15 07/17/16 16:15 07/17/16 16:15 - Lungs Lungs: Clear Ascult./Percussion - Airway Airway: Non-obstructed - Cardiovascular Regular Rate - Mental Status Mental Status: Alert & Oriented, Answers Appropriately - Pain Pain Scale: 4 Pain Scale used: Numeric (1 - 10) - Nausea Vomiting Nausea Vomiting: Not Present - Hydration Hydration: NPO, Goodwin catheter - Discharge PostOp Status: Transfer Patient to floor
[2016-07-17] MEDS ORDERED: ceFAZolin 2,000 MG in D5% in Water 100 ML IVPB SCH (21:00)
[2016-07-17] MEDS: 0.9 % Sodium Chloride 1,000 ML IVC SCH (22:28)
[2016-07-17] MEDS: ceFAZolin 2,000 MG in D5% in Water 100 ML IVPB SCH (22:28)
[2016-07-18] MEDS: *HR* HYDROmorphone (PF) 1 MG/ML SYRINGE IVP PRN ×5 (03:25→21:03)
[2016-07-18] MEDS: ceFAZolin 2,000 MG in D5% in Water 100 ML IVPB SCH (04:53)
[2016-07-18] MEDS: Pantoprazole 40 MG VIAL IVP SCH (08:25)
[2016-07-18] MEDS ORDERED: Pantoprazole 40 MG VIAL IVP SCH (09:00)
[2016-07-18] MEDS: 0.9 % Sodium Chloride 1,000 ML IVC SCH (12:12)
--- NOTE | 2016-07-18 15:08 | General Surgery Progress Note ---
Date of Encounter: 07/18/16 Time of Encounter: 15:03 - Assessment and Plan (1) Paraesophageal hiatal hernia Current Visit: Yes Status: Acute POD#1 #1 repair of para-esophageal hiatal hernia #2 Hang fundoplication Midline incision Afebrile, HR 72, RR [address], strict I/O pain control BB prn antiemetic IVF NS@75ml/hr GI prophylaxis w/ Protonix 40mg IV qday Incentive spirometry Clear liquds, only 300cc per shift (2) DVT prophylaxis Current Visit: No Status: Acute EPCDs Subjective Patient reports: no new complaints, no flatus, no bowel movement, afebrile Narrative: Patient seen and examined. POD#1, #1 repair of para-esophageal hiatal hernia # 2 Hang fundoplication. Pt. tolerated the procedure well. Having mild nausea. No emesis. No flatus or BM. Pain well controlled currently. Objective Vital Signs - Last 8 Hours Temp Pulse Resp BP Pulse Ox 07/18/16 11:25 98.2 F 72 14 168/80 94 L 07/18/16 07:18 98.1 F 91 16 162/68 94 L Intake and Output 07/17/16 07/18/16 07/18/16 23:59 07:59 15:59 Intake Total 100 / 100 100 / 100 1017 / 1017 Output Total 700 / 700 225 / 225 Balance 100 / 100 -600 / -600 792 / 792 Intake: IV Fluids 100 / 100 100 / 100 717 / 717 0.9 % Sodium Chloride 1, 717 / 717 000 ML @ 75 mls/hr IVC . [id number] [facility] Rx#: [id number] Ancef 2,000 MG In 100 / 100 100 / 100 Dextrose 5% 100 ML @ 200 mls/hr IVPB Q8H [facility] Rx#: [id number] Oral 0 / 0 300 / 300 Output: Catheter 700 / 700 225 / 225 Other: Meal Lunch Blood Glucose* 130 114 110 - General physical appearance well developed, well nourished, no distress - Eyes normal ocular movement - Neck Neck exam: trachea midline - Respiratory clear to auscultation - Cardiovascular Cardiovascular exam: Present: RRR - Abdomen Abdomen: Present: bowel sounds present, soft Abdominal Tenderness: diffusely (expected post op tenderness around incision) - Incision Incision: Present: intact - Neurologic CN 2-12 grossly intact - Psychiatric oriented to time, oriented to person, oriented to place - Labs 07/19/16 05:40 07/19/16 05:40 - VTE Documentation of Mechanical Device: Intermittent pneumatic compression device Consult Discharge Plan - Plan Referrals: Jed Calixto MD [Partnered Physician] - 07/29/16 2:00 pm Royal Ceballos MD [Primary Care Provider] - - Attending Attestation I examined this patient and my medical decision-making was reviewed with the TOOL AND DIE DESIGNER/PA/Advanced Practice Nurse/Resident Physician. I agree with the documented findings, disposition and treatment plan as described except to the extent set forth below. The patient is seen and evaluated with the resident on morning rounds. Patient is doing quite well from postoperative day 1. There is no tachycardia and no dysphagia. He is not having any chest pain. Very pleased with his overall clinical course. We will continue supportive care and start him on clear liquids today. Jed Calixto MD FACS
[2016-07-19] MEDS: 0.9 % Sodium Chloride 1,000 ML IVC SCH ×2 (01:44→14:16)
[2016-07-19] MEDS: *HR* HYDROmorphone (PF) 1 MG/ML SYRINGE IVP PRN ×3 (04:25→18:37)
[2016-07-19 06:10] LABS: Basophils % 0.3 %; Eosinophils # 0.1 K/mcL (0.0-0.6); Eosinophils % 0.9 %; Hematocrit 36.3 % (37.5-50.1); Hemoglobin 11.8 g/dL (12.9-16.9); Immature Granulocytes % 0.4 % (0-4); Lymphocytes # 1.3 K/mcL (0.6-4.6); Lymphocytes % 11.4 %; Mean Corpuscular HGB Conc 32.5 g/dL (31.6-35.5); Mean Corpuscular Hemoglobin 28.1 pg (28.0-33.3); Mean Corpuscular Volume 86.4 fL (83.0-100.0); Monocytes # 1.5 K/mcL (0.0-1.3); Monocytes % 12.7 %; Neutrophils # 8.6 K/mcL (1.6-8.9); Platelet Count 176 K/mcL (140-400); Segmented Neutrophils % 74.3 %
[2016-07-19 06:22] LABS: BUN/Creatinine Ratio 9 (6-26); Blood Urea Nitrogen 6 mg/dL (8-26); Calcium 8.4 mg/dL (8.6-10.8); Carbon Dioxide 25 mEq/L (19-29); Chloride 102 mEq/L (98-109); Glucose 96 mg/dL (70-99); Osmolality,Calculated 279 (280-300); Sodium 136 mEq/L (136-145); eGFR For African Americans > 60 (> 60); eGFR For Non-African Americans > 60 (> 60)
[2016-07-19] MEDS: Pantoprazole 40 MG VIAL IVP SCH (08:37)
--- NOTE | 2016-07-19 15:08 | General Surgery Progress Note ---
Date of Encounter: 07/19/16 Time of Encounter: 15:04 - Assessment and Plan (1) Paraesophageal hiatal hernia Current Visit: Yes Status: Acute POD#2 #1 repair of para-esophageal hiatal hernia #2 Hang fundoplication Midline incision, expected pain Afebrile, HR 94, RR 17 WBC: 11.5 Remove tatum pain control BB prn antiemetic IVF NS@75ml/hr GI prophylaxis w/ Protonix 40mg IV qday Incentive spirometry Clear liquds (2) DVT prophylaxis Current Visit: No Status: Acute EPCDs Subjective Patient reports: feels better, still having pain, flatus, no bowel movement, afebrile Narrative: Patient seen and examined at bedside. States he is still having pain, which is to be expected post-op day2. He does have bowel sounds and flatus but no BM yet. He denies nausea. He denies dysphagia. He is a bit tachycardic around 100 bpm but there is no tachypneia, and he remains afebrile. Objective Vital Signs - Last 8 Hours Temp Pulse Resp BP Pulse Ox 07/19/16 10:45 99.0 F 100 18 140/72 93 L Intake and Output 07/18/16 07/19/16 07/19/16 23:59 07:59 15:59 Intake Total 1061 / 1061 446 / 446 1164 / 1164 Output Total 900 / 900 1050 / 1050 500 / 500 Balance 161 / 161 -604 / -604 664 / 664 Intake: IV Fluids 701 / 701 446 / 446 804 / 804 0.9 % Sodium Chloride 1, 701 / 701 446 / 446 804 / 804 000 ML @ 75 mls/hr IVC . [id number] [facility] Rx#: [id number] Oral 360 / 360 0 / 0 360 / 360 Output: Catheter 900 / 900 1050 / 1050 500 / 500 Other: Meal Dinner Breakfast Weight 71.577 kg Blood Glucose* 104 Patient Weight 07/19/16 23:59 Weight 71.577 kg - Additional Exam - General physical appearance well developed, well nourished, no distress - Eyes normal ocular movement - Neck Neck exam: trachea midline - Respiratory clear to auscultation - Cardiovascular Cardiovascular exam: Present: RRR - Abdomen Abdomen: Present: bowel sounds present, soft Abdominal Tenderness: diffusely (expected post op tenderness around incision) - Incision Incision: Present: intact - Neurologic CN 2-12 grossly intact - Psychiatric oriented to time, oriented to person, oriented to place - Labs 07/20/16 05:27 07/19/16 05:40 Diabetes panel 07/19/16 Range/Units 05:40 Sodium 136 (136-145) mEq/L Potassium 4.0 (3.5-4.5) mEq/L Chloride 102 (98-109) mEq/L Carbon Dioxide 25 (19-29) mEq/L BUN 6 L (8-26) mg/dL Creatinine 0.66 L (0.72-1.25) mg/dL Glucose 96 (70-99) mg/dL Calcium 8.4 L (8.6-10.8) mg/dL Calcium panel 07/19/16 Range/Units 05:40 Calcium 8.4 L (8.6-10.8) mg/dL Pituitary panel 07/19/16 Range/Units 05:40 Sodium 136 (136-145) mEq/L Potassium 4.0 (3.5-4.5) mEq/L Chloride 102 (98-109) mEq/L Carbon Dioxide 25 (19-29) mEq/L BUN 6 L (8-26) mg/dL Creatinine 0.66 L (0.72-1.25) mg/dL Glucose 96 (70-99) mg/dL Calcium 8.4 L (8.6-10.8) mg/dL Adrenal panel 07/19/16 Range/Units 05:40 Sodium 136 (136-145) mEq/L Potassium 4.0 (3.5-4.5) mEq/L Chloride 102 (98-109) mEq/L Carbon Dioxide 25 (19-29) mEq/L BUN 6 L (8-26) mg/dL Creatinine 0.66 L (0.72-1.25) mg/dL Glucose 96 (70-99) mg/dL Calcium 8.4 L (8.6-10.8) mg/dL - VTE Documentation of Mechanical Device: Intermittent pneumatic compression device Consult Discharge Plan - Plan Referrals: Jed Calixto MD [Partnered Physician] - 07/29/16 2:00 pm Royal Ceballos MD [Primary Care Provider] - - Attending Attestation I examined this patient and my medical decision-making was reviewed with the CERTIFIED ADDICTION COUNSELOR/PA/Advanced Practice Nurse/Resident Physician. I agree with the documented findings, disposition and treatment plan as described except to the extent set forth below. The patient was seen and evaluated on morning rounds with the resident. he has an expected postoperative ileus. We will continue IV hydration and supportive care and he will be maintained on clear liquids until bowel activity resumes. He has no evidence of tachycardia and chest pain. Jed Calixto MD FACS
[2016-07-20] MEDS: *HR* HYDROmorphone (PF) 1 MG/ML SYRINGE IVP PRN ×4 (00:04→20:14)
[2016-07-20] MEDS: 0.9 % Sodium Chloride 1,000 ML IVC SCH ×2 (04:30→15:55)
[2016-07-20 06:08] LABS: Basophils % 0.2 %; Eosinophils # 0.4 K/mcL (0.0-0.6); Eosinophils % 5.2 %; Hemoglobin 11.2 g/dL (12.9-16.9); Immature Granulocytes % 0.2 % (0-4); Lymphocytes # 1.4 K/mcL (0.6-4.6); Lymphocytes % 16.7 %; Mean Corpuscular HGB Conc 32.9 g/dL (31.6-35.5); Mean Corpuscular Hemoglobin 28.5 pg (28.0-33.3); Mean Corpuscular Volume 86.5 fL (83.0-100.0); Mean Platelet Volume 9.9 fL (9.4-12.4); Monocytes # 1.1 K/mcL (0.0-1.3); Monocytes % 13.3 %; Neutrophils # 5.2 K/mcL (1.6-8.9); Platelet Count 153 K/mcL (140-400); Red Blood Count 3.93 M/mcL (4.19-5.50); Red Cell Distribution Width 12.9 % (11.5-14.5); Segmented Neutrophils % 64.4 %
[2016-07-20] MEDS: Pantoprazole 40 MG VIAL IVP SCH (08:19)
--- NOTE | 2016-07-20 10:00 | General Surgery Progress Note ---
Date of Encounter: 07/20/16 Time of Encounter: 09:55 - Assessment and Plan (1) Paraesophageal hiatal hernia Current Visit: Yes Status: Acute POD#3 #1 repair of para-esophageal hiatal hernia #2 Hang fundoplication Midline incision, expected pain no flatus, no bm yet. Will add Reglan IV 20mg q8h for 36 hours and a fleets enema to stimulate the bowel. Afebrile, HR 83, RR 16 WBC: 8.1 pain control BB prn antiemetic IVF NS@75ml/hr GI prophylaxis w/ Protonix 40mg IV qday Incentive spirometry Full liquid diet (2) DVT prophylaxis Current Visit: No Status: Acute EPCDs Subjective Patient reports: feels better, still having pain, no flatus, no bowel movement, afebrile Narrative: Patient seen and examined. He is doing well. Still complaining of post-op pain, which is expected. No BM or flatus yet. No nausea/vomiting. Objective Vital Signs - Last 8 Hours Temp Pulse Resp BP Pulse Ox 07/20/16 07:15 98.2 F 83 16 152/80 94 L 07/20/16 04:16 98.5 F 95 17 151/77 93 L Intake and Output 07/19/16 07/20/16 07/20/16 23:59 07:59 15:59 Intake Total 480 / 480 1000 / 1000 360 / 360 Output Total 50 / 50 380 / 380 0 / 0 Balance 430 / 430 620 / 620 360 / 360 Intake: IV Fluids 1000 / 1000 0.9 % Sodium Chloride 1, 1000 / 1000 000 ML @ 75 mls/hr IVC . [id number] [facility] Rx#: [id number] Oral 480 / 480 0 / 0 360 / 360 Output: Urine 50 / 50 380 / 380 0 / 0 Other: Meal Breakfast - Additional Exam - General physical appearance well developed, well nourished, no distress - Eyes normal ocular movement - Neck Neck exam: trachea midline - Respiratory clear to auscultation - Cardiovascular Cardiovascular exam: Present: RRR - Abdomen Abdomen: Present: bowel sounds present, soft Abdominal Tenderness: diffusely (expected post op tenderness around incision) - Incision Incision: Present: intact - Neurologic CN 2-12 grossly intact - Psychiatric oriented to time, oriented to person, oriented to place - Labs 07/20/16 05:27 07/19/16 05:40 - VTE Documentation of Mechanical Device: Intermittent pneumatic compression device Consult Discharge Plan - Plan Referrals: Jed Calixto MD [Partnered Physician] - 07/29/16 2:00 pm Royal Ceballos MD [Primary Care Provider] - - Attending Attestation I examined this patient and my medical decision-making was reviewed with the SUPERVISOR DRYING AND WINDING/PA/Advanced Practice Nurse/Resident Physician. I agree with the documented findings, disposition and treatment plan as described except to the extent set forth below. The patient is seen and evaluated with the resident on morning rounds. He is clinically much better however he has not had a bowel movement yet. He will be placed on Reglan and given a fleets enema to stimulate bowel activity. He should be able to be discharged once he has a bowel movement. Jed Calixto MD FACS
[2016-07-20] MEDS: Metoclopramide 20 MG in 0.9 % Sodium Chloride 50 ML IVPB SCH ×2 (15:45→16:38)
[2016-07-21] MEDS: Metoclopramide 20 MG in 0.9 % Sodium Chloride 50 ML IVPB SCH ×2 (00:30→07:56)
[2016-07-21] MEDS: 0.9 % Sodium Chloride 1,000 ML IVC SCH ×3 (04:37→17:52)
[2016-07-21] MEDS: *HR* HYDROmorphone (PF) 1 MG/ML SYRINGE IVP PRN ×4 (04:40→21:50)
[2016-07-21] MEDS: Pantoprazole 40 MG VIAL IVP SCH (07:56)
--- NOTE | 2016-07-21 13:57 | General Surgery Progress Note ---
Date of Encounter: 07/21/16 Time of Encounter: 13:30 - Assessment and Plan (1) Paraesophageal hiatal hernia Status: Resolved POD #4 from #1 repair of para-esophageal hiatal hernia #2 Hang fundoplication Continue full liquid diet Ensure HP TID with meals Supportive care/pain control Out of bed to chair/ambulate TID Add colace BID Incentive Spirometer every 1 hour while awake (2) DVT prophylaxis Status: Acute EPCDs to bilateral lower extremities for DVT prophylaxis Subjective Patient reports: no new complaints, feels better, still having pain, pain is less, tolerating liquids well (full liquids), voiding w/o difficulty, flatus, no bowel movement, afebrile, other (Patient out of bed to chair) Objective Vital Signs - Last 8 Hours Temp Pulse Resp BP Pulse Ox 07/21/16 10:41 93 L 07/21/16 10:40 98.4 F 77 18 133/74 94 L 07/21/16 08:02 97.7 F 71 18 131/72 93 L Intake and Output 07/20/16 07/21/16 07/21/16 23:59 07:59 15:59 Intake Total 962 / 962 931 / 931 338 / 338 Output Total 700 / 700 400 / 400 400 / 400 Balance 262 / 262 531 / 531 -62 / -62 Intake: IV Fluids 482 / 482 931 / 931 338 / 338 0.9 % Sodium Chloride 1, 374 / 374 877 / 877 284 / 284 000 ML @ 75 mls/hr IVC . [id number] [facility] Rx#: [id number] Reglan 20 MG In 0.9 % 108 / 108 54 / 54 54 / 54 Sodium Chloride 50 ML @ 108 mls/hr IVPB Q8H [facility] Rx#:[id number] Oral 480 / 480 0 / 0 0 / 0 Output: Urine 400 / 400 400 / 400 400 / 400 Catheter 300 / 300 Other: # Voids 1 Weight 71.3 kg Patient Weight 07/21/16 23:59 Weight 71.3 kg - General physical appearance well developed, well nourished, no distress - Eyes normal ocular movement - ENT normal mucosa, atraumatic, normocephalic - Neck Neck exam: trachea midline - Respiratory normal respiratory effort, clear to auscultation - Cardiovascular Cardiovascular exam: Present: RRR - Abdomen Abdomen: Present: bowel sounds present, soft, tender (expected post-operative discomfort) - Incision Incision: Present: clean and dry, intact - Integumentary no rash, no growths - Neurologic CN 2-12 grossly intact - Musculoskeletal normal gait, normal posture - Psychiatric oriented to time, oriented to person, oriented to place, speech is normal, memory intact - Labs 07/20/16 05:27 07/19/16 05:40 - VTE Documentation of Mechanical Device: Intermittent pneumatic compression device Consult Discharge Plan - Plan Additional Instructions: Post-operative Instructions: Continue with a thin liquid diet until you see Dr. Calixto for your follow-up appointment in one week. You can shower but no tub bath until instructed Wash incisions with soap and water and pat dry daily No lifting/pushing/pulling greater than 15 lb. for a total of 4 weeks from the date of surgery No driving until off narcotics and able to safely react in the car May climb stairs THIN LIQUID DIET SHEET This diet provides fluids that leave little residue and are easily absorbed with minimal digestive activity. This diet is inadequate in all essential nutrients and is recommended only if clear liquids are temporarily needed. No red/purple or other dark liquids should be consumed Foods Allowed -Tea (decaffeinated or regular), carbonated beverages, fruit flavored drinks, Gatorade (or similar type drinks) in light colors -Strained fruit juices (no pulp): apple, white grape, lemonade -Clear broth, consomm (chicken or vegetable) -Clear flavored Jell-O, popsicles (no red or purple flavors) -Sugar, honey, syrup, clear hard candy, salt, etc -Sugar free products are fine -Drink 3-4 cans of ensure per day Foods to Avoid -No meats or meat substitutes -No vegetables -No grains or starches (bread, potatoes) -Nothing you can chew -No carbonated drinks for 6-8 weeks Referrals: Jed Calixto MD [Partnered Physician] - 07/29/16 2:00 pm Prescriptions: Ondansetron ODT [Zofran ODT] 4 mg SL Q6HR PRN #30 tab.rapdis PRN Reason: Nausea Docusate [Colace] 100 mg PO BID #60 capsule Oxycodone HCl/Acetaminophen [Percocet 10-325 mg Tablet] 1 each PO Q6H PRN #24 tablet PRN Reason: Pain - Attending Attestation I examined this patient and my medical decision-making was reviewed with the OUTSIDE SALES ENGINEER/PA/Advanced Practice Nurse/Resident Physician. I agree with the documented findings, disposition and treatment plan as described except to the extent set forth below. The patient is seen and evaluated. He is doing quite well but has not had bowel activity yet. We will continue supportive care until he has full bowel activity then proceed with discharge. Maintain full liquids diet. Jed Calixto MD FACS
[2016-07-22 07:48] VITALS: BP 163/79
[2016-07-22] MEDS: Pantoprazole 40 MG VIAL IVP SCH (07:55)
--- NOTE | 2016-07-22 08:37 | Discharge Summary ---
<Oscar Burden - Last Filed: 07/22/16 09:29> Date of Encounter: 07/22/16 Time of Encounter: 08:33 - Discharge Diagnosis (1) Paraesophageal hiatal hernia Priority: Primary Status: Resolved (2) DVT prophylaxis Priority: Secondary Status: Acute - Discharge Medications Prescriptions: Ondansetron ODT [Zofran ODT] 4 mg SL Q6HR PRN #30 tab.rapdis PRN Reason: Nausea Docusate [Colace] 100 mg PO BID #60 capsule Oxycodone HCl/Acetaminophen [Percocet 10-325 mg Tablet] 1 each PO Q6H PRN #24 tablet PRN Reason: Pain Home Medications: Aspirin 81 mg PO DAILY 04/15/16 [History] Clopidogrel [Plavix] 75 mg PO DAILY 04/15/16 [History] Lisinopril [Zestril] 5 mg PO DAILY 04/15/16 [History] Pantoprazole Sodium [Protonix] 40 mg PO BID 04/15/16 [History] Simvastatin [Zocor] 40 mg PO HS 04/15/16 [History] Cyanocobalamin (Vitamin B-12) [Vitamin B-12] 500 mcg PO DAILY 06/25/16 [History] Multivitamin [One Daily Essential] 1 each PO DAILY 06/25/16 [History] Docusate [Colace] 100 mg PO BID #60 capsule 07/22/16 [Rx] Ondansetron ODT [Zofran ODT] 4 mg SL Q6HR PRN #30 tab.rapdis 07/22/16 [Rx] Oxycodone HCl/Acetaminophen [Percocet 10-325 mg Tablet] 1 each PO Q6H PRN #24 tablet 07/22/16 [Rx] Allergies/Adverse Reactions: Allergies No Known Allergies Allergy (Verified 07/17/16 12:14) General Surgery Exam Initial Vital Signs Temp Pulse Resp BP Pulse Ox 98.0 F 80 18 146/80 97 07/17/16 12:21 07/17/16 12:21 07/17/16 12:21 07/17/16 12:21 07/17/16 12:21 - General physical appearance well developed, well nourished, no distress - Neck trachea midline - Respiratory normal expansion, clear to auscultation - Cardiovascular Cardiovascular exam: Present: RRR - Abdomen Abdomen general surgery: Present: bowel sounds present, soft, tender (expected post-op incisional tenderness) - Integumentary Integumentary general surgery: Present: warm and dry - Neurologic Present: CN 2-12 grossly intact - Psychiatric Psychiatric general surgery: Present: A&Ox3 Date of admission: 07/17/16 16:58 Primary care physician: Royal Ceballos MD Discharging clinician: Jed Calixto Anticipated date of discharge: 07/22/16 - Patient Status Disposition: Home, Self-Care Condition: Good Overall status at discharge: patient is progressing back to baseline - Discharge Instructions Follow Up With: Jed Calixto MD [Partnered Physician] - 07/29/16 2:00 pm Additional Instructions: Post-operative Instructions: Continue with a thin liquid diet until you see Dr. Calixto for your follow-up appointment in one week. You can shower but no tub bath until instructed Wash incisions with soap and water and pat dry daily No lifting/pushing/pulling greater than 15 lb. for a total of 4 weeks from the date of surgery No driving until off narcotics and able to safely react in the car May climb stairs THIN LIQUID DIET SHEET This diet provides fluids that leave little residue and are easily absorbed with minimal digestive activity. This diet is inadequate in all essential nutrients and is recommended only if clear liquids are temporarily needed. No red/purple or other dark liquids should be consumed Foods Allowed -Tea (decaffeinated or regular), carbonated beverages, fruit flavored drinks, Gatorade (or similar type drinks) in light colors -Strained fruit juices (no pulp): apple, white grape, lemonade -Clear broth, consomm (chicken or vegetable) -Clear flavored Jell-O, popsicles (no red or purple flavors) -Sugar, honey, syrup, clear hard candy, salt, etc -Sugar free products are fine -Drink 3-4 cans of ensure per day Foods to Avoid -No meats or meat substitutes -No vegetables -No grains or starches (bread, potatoes) -Nothing you can chew -No carbonated drinks for 6-8 weeks - Diet and Activity Activity: increase activity as tolerated Diet: other (Clear liquid diet until you see Dr. Calixto in one week for your outpatient follow-up) - Hospital Course Hospital course: Mr. 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 Final diagnosis: #1 repair of para-esophageal hiatal hernia #2 Hang fundoplication After informed consent patient was taken major operative suite placed in the supine position given adequate general anesthetic. Gilbert taken patient was identified. Vertical midline incisions. The abdomen is entered. Approximate 50% of the stomach is in the chest. A Bookwalter retractor was placed. I mobilized the lateral segment of left lobe liver by dividing the triangular ligament. The lateral segment of the left lobe of liver was retracted inferiorly and to the right. I divided the peritoneal reflection overlying the esophagus. The gastroesophageal junction was fixed and not sliding. The stomach had herniated posteriorly through the hiatus. The hiatus was quite large. The nasogastric tube was placed for the initial dissection to identify the esophagus. I divided the tissue along the lesser omentum and isolated the right yvette of the diaphragm. There is a good deal of tissue projecting from the celiac axis up in the mediastinum. The posterior vagus nerve was identified and grouped with the esophagus. The tissue between the posterior vagus nerve and the aorta was then divided. This allowed me access to the left crura of the diaphragm from the right side. Attention was then turned to the left side. I divided the peritoneum between the stomach and the hernia. This was obviously hernia sac and withdrawn the stomach up in the mediastinum. Once the peritoneum and hernia sac was divided I was able to isolate the short gastrics. The short gastrics on the cardia were then divided with surgical clips and Harmonic dissector. I had full mobilization of the cardia. Once this was done the remainder of the tissue between the celiac axis and the mediastinum was divided not a complete visualization of the left crura of the diaphragm. Then retracted the esophagus and removed the nasogastric tube and placed a 56-Syrian bougie. Once this was done a retracted the esophagus to the left. I then closed the hiatal hernia with 4 stitches of 2-0 Ethibond with pledgets this gave an excellent technical result. The cautery was then brought behind the gastroesophageal junction and I created a 3 stitch Hang fundoplication. This was done around a 56-Syrian bougie and I would consider this a floppy Hang fundoplication. This gave an excellent technical result the bougie was removed I then placed 2 shoulder stitches between the Hang fundoplication and the diaphragm into waste stitches between the Hang fundoplication in the anterior surface of the stomach to further stabilize the wrap and a maintain intra-abdominal orientation. This concluded the procedure blood loss was minimal at 50 mL the liver was returned into the normal position. I then irrigated with copious amounts of antibiotic containing solution midline was closed with looped 0 PDS and skin was closed with interrupted Vicryl and skin clips. He tolerated the procedure well. Post-operatively his dysphagia had resolved. He only required minimal pain medication to control his incisional pain. He had a mild leukocytosis of 11.5 on POD#1 which resolved by POD#2. His WBC were WNL on the day of discharge. He remained afebrile throughout his stay. His vital signs were stable at the time of discharge. - Time Spent with Patient Total time spent providing and/or coordinating discharge services: <Jed Calixto - Last Filed: 07/22/16 14:54> - Discharge Diagnosis (1) Paraesophageal hiatal hernia Status: Resolved (2) DVT prophylaxis Status: Acute General Surgery Exam Initial Vital Signs Temp Pulse Resp BP Pulse Ox 98.0 F 80 18 146/80 97 07/17/16 12:21 07/17/16 12:21 07/17/16 12:21 07/17/16 12:21 07/17/16 12:21 Date of admission: 07/17/16 16:58 Primary care physician: Royal Ceballos MD - Hospital Course Hospital course: Mr. Richter is a 66 year old male - Time Spent with Patient Total time spent providing and/or coordinating discharge services: Labs on day of discharge: Labs from last 24 hours 07/22/16 07:47 POC Glucose 94 H - Attending Attestation I examined this patient and my medical decision-making was reviewed with the IUSS ACOUSTIC ANALYST/PA/Advanced Practice Nurse/Resident Physician. I agree with the documented findings, disposition and treatment plan as described except to the extent set forth below. The patient seen and evaluated with the resident morning rounds. He has now gained bowel activity and is ready for discharge Jed Calixto MD FACS
== END 2016-07-22 12:04 | disposition home or self-care (01) | DRG 328 ==
LOC: SAMDAY 11:52 → 3ANU 16:58
PROVIDERS: ADMIT Surgery; ATTEND Surgery